=== PATIENT | male | born 1950 | race Caucasian/White ===

== ENCOUNTER 2020-05-27 13:16 | Inpatient (IN) | payer MEDICARE, BC ==
[~2020-05-27] VITALS: Ht 167.6 cm; Wt 49.9 kg
[2020-05-27] MEDS ORDERED: ASPIRIN ADULT L81 M1 PO (13:31)
[2020-05-27] MEDS ORDERED: EXELON1 EACH T (13:32)
[2020-05-27] MEDS ORDERED: EXELON1 EAC1 T (13:35)
[2020-05-27] MEDS ORDERED: NAMENDA-5 PO ×2 (13:38→13:46)
[2020-05-27] MEDS ORDERED: ONE-DAILY MULT1 EAC1 PO (13:38)
[2020-05-27] MEDS ORDERED: PANTOPRAZOLE SO40 MG PO (13:43)
[2020-05-27] MEDS ORDERED: SYSTANE GEL10 GM OPH (13:44)
[2020-05-27] MEDS ORDERED: ARTIFICIAL TEAR1514 OP (13:45)
[2020-05-27] MEDS ORDERED: K-TAB20 MEQ PO (13:48)
[2020-05-27] MEDS ORDERED: DEPAKOTE SPRIN125 MG PO (13:49)
[2020-05-27] MEDS ORDERED: TYLENOL325 M2 PO (13:51)
[2020-05-27] MEDS ORDERED: ATIVAN2 MG/1 ML IM (13:52)
[2020-05-27] MEDS ORDERED: DULCOLAX10 M1 R (13:54)
[2020-05-27] MEDS ORDERED: VISTARIL25 MG PO (13:55)
[2020-05-27 17:24] LABS: BASO % 0.5 % (0.0-1.0); EOS # 0.1 10*3/uL (0.0-0.4); HEMATOCRIT 32.3 % (42.0-52.0); LYMPH # 2.4 10*3/uL (1.3-4.4); LYMPH % 59.2 % (27.0-41.0); MEAN CELL VOLUME 95.3 fl (80.0-94.0); MEAN CORPUSCULAR HGB 30.7 pg (27.0-31.0); MEAN CORPUSCULAR HGB CONC 32.2 g/dl (33.0-37.0); MEAN PLATELET VOLUME 11.2 fl (9.6-12.3); MONO # 0.4 10*3/uL (0.1-1.0); MONO % 10.3 % (3.0-9.0); NEUT # 1.1 10*3/uL (2.3-7.9); NEUT % 27.7 % (47.0-73.0); PLATELET COUNT AUTOMATED 353 10*3/uL (130-400); RED BLOOD COUNT 3.39 10*6/uL (4.50-5.90); RED CELL DISTRI WIDTH 13.7 % (0-14.5)
[2020-05-27 17:40] LABS: ALBUMIN 3.2 gm/dl (3.1-4.5); ALKALINE PHOSPHATASE 71 U/L (45-117); BUN 16 mg/dl (7-24); CHLORIDE 103 mmol/L (98-107); CREATININE 0.93 mg/dL (0.70-1.30); POTASSIUM 4.1 mmol/L (3.5-5.1); SGOT/AST 17 IU/L (3-35); SGPT/ALT 24 U/L (12-78); SODIUM 137 mmol/L (136-145); TOTAL PROTEIN 8.2 gm/dL (6.4-8.2)
[2020-05-27 19:23] LABS: VITAMIN D, 25-HYDROXY 36.8 ng/mL (30-100)
[2020-05-27 20:44] VITALS: BP 112/60
[2020-05-28 06:31] LABS: BILIRUBIN Negative (Negative); BLOOD Negative (Negative); CLARITY Clear (Clear); COLOR Yellow (Yellow); GLUCOSE Negative (Negative); KETONE Negative (Negative); LEUKO ESTERASE Negative (Negative); NITRITE Negative (Negative); SPECIFIC GRAVITY <= 1.005 (1.001-1.030)
[2020-05-28 06:38] LABS: BACTERIA TRACE; RBC 0-2 rbc/hpf (0-2); WBC 0-2 wbc/hpf (0-5)
[2020-05-28 06:43] LABS: CHOLESTEROL 187 mg/dL (<200); HDL CHOLESTEROL 44 mg/dl (40-60); LDL CHOLESTEROL 102 mg/dL (9-159); TRIGLYCERIDES 203 mg/dl (<150); VLDL CHOLESTEROL 41 mg/dL (6-40)
[2020-05-28 07:06] LABS: RBC, FOLATE HEMATOCRIT 30.5 % (37.5-51.0)
[2020-05-28 07:48] VITALS: BP 126/62
[2020-05-28 20:00] VITALS: BP 110/58
[2020-05-29 08:00] VITALS: BP 114/62
[2020-05-29 19:56] VITALS: BP 111/50
[2020-05-30 07:52] VITALS: BP 107/65
[2020-05-30 20:00] VITALS: BP 112/59
[2020-05-31 07:55] VITALS: BP 103/59
[2020-05-31 18:57] VITALS: BP 111/59
[2020-06-01 07:03] VITALS: BP 104/58
[2020-06-01 20:00] VITALS: BP 121/69
[2020-06-02 07:30] VITALS: BP 110/64
[2020-06-02 16:35] LABS: BUN 26 mg/dl (7-24); CHLORIDE 105 mmol/L (98-107); CREATININE 0.99 mg/dL (0.70-1.30); POTASSIUM 4.2 mmol/L (3.5-5.1); SODIUM 136 mmol/L (136-145)
[2020-06-02 16:36] LABS: TROPONIN I < 0.015 ng/ml (<0.045)
[2020-06-02 19:14] VITALS: BP 127/58
[2020-06-03 07:51] VITALS: BP 127/88
[2020-06-03 19:22] VITALS: BP 122/76
[2020-06-04 07:45] VITALS: BP 110/56
[2020-06-04 19:10] VITALS: BP 137/61
[2020-06-05 08:00] VITALS: BP 100/60
[2020-06-05 19:47] VITALS: BP 106/51
[2020-06-06 07:36] VITALS: BP 105/78
[2020-06-06 20:00] VITALS: BP 122/56
[2020-06-07 07:47] VITALS: BP 111/52
[2020-06-07 20:00] VITALS: BP 108/55
[2020-06-08 08:00] VITALS: BP 100/52
[2020-06-08 20:00] VITALS: BP 111/77
[2020-06-09 07:39] VITALS: BP 108/56
[2020-06-09] MEDS ORDERED: ROZEREM8 MG PO (09:40)
[2020-06-09] MEDS ORDERED: RIVASTIGMINE1 EAC2 T (09:40)
[2020-06-09] MEDS ORDERED: RISPERIDONE0.5 MG PO (09:40)
[2020-06-09] MEDS ORDERED: RISPERIDONE1 MG PO (09:40)
[2020-06-09] MEDS ORDERED: MEMANTINE HCL10 MG PO (09:40)
== END 2020-06-09 13:00 | disposition other institution (70) | DRG 883 ==
LOC: 3N 13:16
PROVIDERS: Student in an Organized Health Care Education/Training Program; ADMIT Psychiatry & Neurology Psychiatry; ATTEND Psychiatry & Neurology Psychiatry
DX: F63.81 Intermittent explosive disorder (principal); E44.1 Mild protein-calorie malnutrition; F02.81 Dementia in other diseases classified elsewhere, unspecified severity, with behavioral disturbance; G30.9 Alzheimer's disease, unspecified; F32.9 Major depressive disorder, single episode, unspecified; E11.9 Type 2 diabetes mellitus without complications; K21.9 Gastro-esophageal reflux disease without esophagitis; D64.9 Anemia, unspecified; Z20.828 Contact with and (suspected) exposure to other viral communicable diseases; D72.819 Decreased white blood cell count, unspecified; R29.6 Repeated falls; Z68.42 Body mass index [BMI] 45.0-49.9, adult; Z93.1 Gastrostomy status; Z79.82 Long term (current) use of aspirin; Z79.899 Other long term (current) drug therapy